=== PATIENT | male | born 1950 | race Caucasian/White ===

== ENCOUNTER 2017-12-03 12:27 | Emergency (ER) | payer MEDICARE, OTHER ==
[~2017-12-03] VITALS: Ht 182.9 cm; Wt 98.4 kg
[~2017-12-03 12:27] MED LIST: ANDROGEL 1.62% TOP; LIPITOR40 MG PO; LISINOPRIL20 MG PO; MULTIVITAMINS PO; OCUVITE TABLET1 EAC1 PO; VERAPAMIL ER240 MG PO
[2017-12-03] MEDS ORDERED: PACERONE 200 M200 M1 PO (12:46)
[2017-12-03] MEDS ORDERED: ACYCLOVIR 400400 MG PO (12:46)
[2017-12-03] MEDS ORDERED: DIFLUCAN200 MG PO (12:47)
[2017-12-03] MEDS ORDERED: LASIX 40 MG TAB40 M2 PO (12:48)
[2017-12-03] MEDS ORDERED: LEVAQUIN 750 M750 MG PO (12:48)
[2017-12-03] MEDS ORDERED: COZAAR 25 MG TA25 M1 PO (12:48)
[2017-12-03] MEDS ORDERED: MEXILETINE HCL200 M1 PO (12:49)
[2017-12-03] MEDS ORDERED: MELATONIN5 M1 PO (12:49)
[2017-12-03] MEDS ORDERED: MILK OF MA2400 MG/10 PO (12:49)
[2017-12-03] MEDS ORDERED: ONDANSETRON HCL4 M2 PO (12:50)
[2017-12-03] MEDS ORDERED: OCUVITE EYE +1 EACH PO (12:50)
[2017-12-03] MEDS ORDERED: CRESTOR20 MG PO (12:51)
[2017-12-03] MEDS ORDERED: SENNA8.6 MG PO (12:51)
[2017-12-03] MEDS ORDERED: SPIRONOLACTONE25 M1 PO (12:51)
[2017-12-03] MEDS ORDERED: OXYCODONE HCL 55 MG PO (12:51)
[2017-12-03] MEDS ORDERED: REQUIP 0.25 M0.25 M1 PO (12:51)
[2017-12-03] MEDS ORDERED: TRAZODONE HCL50 MG PO (12:52)
[2017-12-03] MEDS ORDERED: AUGMENTIN 500-1 EACH PO (13:57)
[2017-12-03 14:30] VITALS: BP 100/55
== END 2017-12-03 14:31 | disposition home or self-care (01) ==
LOC: M.ERS 12:27
DX: S61.211A Laceration without foreign body of left index finger without damage to nail, initial encounter (principal); E78.5 Hyperlipidemia, unspecified; I11.0 Hypertensive heart disease with heart failure; I50.9 Heart failure, unspecified; Z96.641 Presence of right artificial hip joint; Z88.8 Allergy status to other drugs, medicaments and biological substances; Z88.1 Allergy status to other antibiotic agents; W26.8XXA Contact with other sharp object(s), not elsewhere classified, initial encounter; Y93.89 Activity, other specified; Y92.89 Other specified places as the place of occurrence of the external cause; Y99.8 Other external cause status